=== PATIENT | male | born 1985 | race African-American/Black ===

== ENCOUNTER 2021-10-23 11:09 | Emergency (ER) | payer OTHER, SELFPAY ==
[2021-10-23 11:19] VITALS: BP 138/90; PULSE 123; RESP 14; TEMP 36.7; O2SAT 97
[2021-10-23 11:55] LABS: Add Urine Microscopic? NO; Appearance Urine Clear (Clear); Bilirubin Urine Negative (Negative); Blood Urine Negative (Negative); Color Urine Yellow (Yellow); Glucose Urine UA Negative (Negative); Ketones Urine Negative (Negative); Leukocyte Esterase Ur Negative LEU/UL (Negative); Nitrate Urine Negative (Negative); Protein Urine Negative (Negative); Specific Grav Ur 1.017 (1.001-1.035); Urobilinogen Urine Negative mg/dL (<2.0)
[2021-10-23 12:03] LABS: Basophils Percent Auto 0.6 % (0.2-1.2); Eosinophils Absolute Auto 0.2 K/mm3 (0-0.3); Eosinophils Percent Auto 2.2 % (0-4.4); Hematocrit 42.9 % (42.0-52.0); Hemoglobin 13.8 g/dL (14.0-18.0); Immature Granulocyte Absolute 0.02 K/mm3 (0.00-0.031); Immature Granulocyte Percent A 0.3 % (0-0.5); Lymphocytes Absolute Auto 1.46 K/mm3 (0.9-3.2); Mean Corpuscular HGB Conc 32.2 g/dl (32-36); Mean Corpuscular Hemoglobin 26.9 pg (26-34); Mean Corpuscular Volume 83.6 fl (80-100); Mean Platelet Volume 8.9 fl (7.4-10.4); Monocytes Absolute Auto 0.8 K/mm3 (0.1-0.6); Neutrophils Absolute Auto 4.4 K/mm3 (1.3-6.7); Neutrophils Percent Auto 63.9 % (45.5-73.1); Platelet Count Result 229 k/mm3 (150-375); Red Blood Count 5.13 M/mm3 (4.6-6.20); Red Cell Distribution Width 14.1 % (11.5-14.5); White Blood Count 6.9 K/mm3 (4.5-10.0)
[2021-10-23 12:11] LABS: Amphetamine Screen Urine Negative (Negative); Barbiturate Screen Urine Negative (Negative); Benzodiazepines Screen Urine Negative (Negative); Cannabinoid Screen Urine Negative (Negative); Cocaine Screen Urine Negative (Negative); Methadone Screen Urine Negative (Negative); Opiate Screen Urine Negative (Negative); Phencyclidine Screen Urine Negative (Negative)
[2021-10-23 12:13] LABS: Alanine Aminotransferase 18 U/L (4-50); Albumin Level 4.6 g/dL (3.5-5.1); Alkaline Phosphatase 61 U/L (38-126); Anion Gap 10 mmol/L (8-16); Aspartate Amino Transferase 41 U/L (17-59); Bilirubin,Total 0.3 mg/dL (0.2-1.3); Blood Urea Nitrogen 15 mg/dL (9-20); Calcium 8.9 mg/dL (8.4-10.2); Carbon Dioxide 26 mmol/L (22-30); Chloride 104 mmol/L (98-107); Estimated CRCL calculation 99 ml/min; Estimated Glomerular Filt Rate > 60; Ethanol < 10 mg/dL (<10); Glucose 110 mg/dL (65-110); Sodium 140 mmol/L (137-145)
--- NOTE | 2021-10-23 12:19 | ED.PSYCH ---
HPI - Psych General Chief Complaint: Psychiatric Symptoms Stated Complaint: neck discoloration, seeing things Time Seen by Provider: 10/23/21 12:05 Source: patient and family Mode of arrival: ambulatory Limitations: altered mental status History of Present Illness HPI Narrative: This is a 36-year-old male that presents to the emergency department for visual hallucinations. Unsure how long this has been going on for. He presents with his sister who was concerned. She does not think he has been taking his psychiatric medications. Reportedly has history of schizophrenia and bipolar depression. He has been seeing snakes in his apartment. He thinks there is witchcraft going on and there are bugs in her bed. Denies thoughts of harming himself or anyone else. Review of Systems Review of Systems: CONSTITUTIONAL: Denies fever PSYCHIATRIC: Reports depression. All systems reviewed & are unremarkable except as noted in HPI and below PMFSH Past Medical History Medical History (Updated 10/23/21 @ 15:54 by Terese Benjamin PA-C) Bipolar depression History of gastroesophageal reflux (GERD) History of hypertension Social History Social History (Updated 10/23/21 @ 12:22 by Terese Benjamin PA-C) Substance use: never Exam Narrative: GENERAL: Well-appearing, well-nourished, and in no acute distress. HEAD: Normocephalic, atraumatic. EYES: EOMI. CHEST: Clear to auscultation. No respiratory distress. No wheezes rales or rhonchi HEART: Regular rate and rhythm. No murmur heard. Normal peripheral pulses. EXTREMITIES: Normal range of motion. No edema. SKIN: Warm, dry, no rash. NEURO: No focal deficits. Alert and oriented x3. PSYCH: Normal mood and affect Course Consultations Consultation #1: Crisis has evaluated patient. Patient will be collections director list for follow up. She is going to reach out to his psychiatric provider. Encouraged patient and his sister to have close follow up with his psychiatric provider Date: 10/23/21 Time: 15:48 Vital Signs Vital signs: Vital Signs Temperature 98.0 F 10/23/21 11:19 Pulse Rate 123 H 10/23/21 11:19 Respiratory Rate 14 10/23/21 11:19 Blood Pressure 138/90 10/23/21 11:19 Pulse Oximetry 97 10/23/21 11:19 Temperature 98.0 F 10/23/21 11:19 Pulse Rate 123 H 10/23/21 11:19 Respiratory Rate 14 10/23/21 11:19 Blood Pressure 138/90 10/23/21 11:19 Pulse Oximetry 97 10/23/21 11:19 MDM - Psych MDM Narrative Medical decision making narrative: Patient presents to the emergency department for visual hallucinations. No concerning findings on laboratory evaluation. Patient is alert and oriented. He is taking care of himself. His sister is here as well who is involved in his care. He has not thoughts of harming himself or anyone else. Crisis has evaluated patient. Does not believe at this time he needs involuntary admission. Patient will be collections director list for follow up. She is going to reach out to his psychiatric provider. Encouraged patient and his sister to have close follow up with his psychiatric provider. Patient and sister agree with this plan. Patient is stable and felt appropriate for further outpatient evaluation. They were given warnings to return to the ER Lab Data Attestation: I reviewed the patient's lab results. Result diagrams: 10/23/21 11:55 10/23/21 11:55 Labs: Lab Results 10/23/21 10/23/21 10/23/21 Range/Units 11:45 11:45 11:55 WBC 6.9 (4.5-10.0) K/mm3 RBC 5.13 (4.6-6.20) M/mm3 Hgb 13.8 L (14.0-18.0) g/dL Hct 42.9 (42.0-52.0) % MCV 83.6 (80-100) fl MCH 26.9 (26-34) pg MCHC 32.2 (32-36) g/dl RDW 14.1 (11.5-14.5) % Plt Count 229 (150-375) k/mm3 MPV 8.9 (7.4-10.4) fl Immature Gran % (Auto) 0.3 (0-0.5) % Neut % (Auto) 63.9 (45.5-73.1) % Lymph % (Auto) 21.0 (18.3-44.2) % Mora % (Auto) 12.0 H (2.6-8.5) % Eos % (Auto) 2.2 (0-4.4) % Baso % (Auto) 0.6
--- NOTE | 2021-10-23 12:32 | PC.NURSE ---
Spoke with provider and conveyor line battery charger. Both are in agreement that patient is calm, cooperative and has no SI/HI. Both are comfortable with pt remaining in clothing with sister at bedside.
--- NOTE | 2021-10-23 13:04 | PC.NURSE ---
Pt has been cleared by provider to call Crisis. Pt sister has been updated.
--- NOTE | 2021-10-23 13:09 | PC.NURSE ---
Crisis called placed. States they will be out within the hour
--- NOTE | 2021-10-23 15:04 | PC.NURSE ---
Crisis at facility to evaluate patient at this time.
[2021-10-23 15:59] VITALS: PULSE 70; RESP 18; O2SAT 98
--- NOTE | 2021-10-23 15:59 | PC.NURSE ---
Per Angeli pt is able to go home with family and call for f/u tomorrow.
== END 2021-10-23 16:00 | disposition home or self-care (01) ==
PROVIDERS: Physician Assistant; Emergency Provider Emergency Medicine
DX: F20.9 Schizophrenia, unspecified (principal); F31.9 Bipolar disorder, unspecified; K21.9 Gastro-esophageal reflux disease without esophagitis; I10 Essential (primary) hypertension
CPT/HCPCS: 36415; 80053; 80307; 81003; 84443; 85025; 99284